=== PATIENT | female | born 1955 | race African-American/Black ===

== ENCOUNTER 2021-03-31 13:37 | Emergency (ER) | payer MEDICARE, OTHER ==
[~2021-03-31] VITALS: Ht 157.5 cm; Wt 72.7 kg
[~2021-03-31 13:37] MED LIST: AMLO-258 PO; ESTR0.5T PO; GABA-1181 PO
[2021-03-31] MEDS ORDERED: CYCLOBENZAPRINE HCL 10 MG TABLET PO ONE (15:00)
[2021-03-31] MEDS ORDERED: HYDROCODONE/ACETAMINOPHEN 5-325 MG TABLET PO ONE (15:00)
[2021-03-31] MEDS ORDERED: IBUPROFEN 600 MG TABLET PO ONE (15:00)
[2021-03-31 17:48] VITALS: BP 144/75
== END 2021-03-31 17:56 | disposition home or self-care (01) ==
LOC: EMS 13:43
DX: M54.16 Radiculopathy, lumbar region (principal)
CPT/HCPCS: 72148; 99284; Z7502; Z7610

== ENCOUNTER → 2021-05-23 | Outpatient (CLI) | payer MEDICARE, OTHER ==
[~2021-05-23] MED LIST changes: +ASPI-1450 PO; +ATOR40TA28 PO; +CITA-144 PO; -ESTR0.5T PO; +IBUP-2071 PO; +LAMO100 PO
[2021-05-23 15:53] LABS: EOSINOPHILS % (AUTO) 4.2 % (1.0-6.0); HEMATOCRIT 23.7 % (36-46); HEMOGLOBIN 7.9 g/dL (12.0-16.0); LYMPHOCYTES # (AUTO) 2.7 K/uL (1.0-4.8); LYMPHOCYTES % (AUTO) 36.8 % (22.0-44.0); MEAN CORPUSCULAR HEMOGLOBIN 32.4 pg (26.0-34.0); MEAN CORPUSCULAR HGB CONC 33.2 G/dL (31.0-37.0); MEAN CORPUSCULAR VOLUME 98 fL (80-100); MONOCYTES # (AUTO) 0.7 K/uL (0.1-1.0); MONOCYTES % (AUTO) 10.2 % (2.0-9.0); NEUTROPHILS # (AUTO) 3.5 K/uL (1.8-7.7); NEUTROPHILS % (AUTO) 47.8 % (40.0-70.0); PLATELET COUNT (AUTO) 370 K/uL (150-450); RED BLOOD CELL COUNT(AUTO) 2.43 MIL/uL (4.00-5.20); RED CELL DISTRIBUTION WIDTH 17.6 % (11.5-14.5)
[2021-05-23 16:26] LABS: ALBUMIN 3.3 g/dL (3.4-5.0); BILIRUBIN,TOTAL 0.3 mg/dL (0.1-1.0); CALCIUM, TOTAL 8.6 mg/dL (8.8-10.5); CREATININE 1.4 mg/dL (0.60-1.30); POTASSIUM 4.2 mmol/L (3.5-5.1); TOTAL PROTEIN, SERUM 7.2 g/dL (6.4-8.2)
== END | disposition home or self-care (01) ==
LOC: LABMN 15:25
PROVIDERS: ATTEND Internal Medicine Cardiovascular Disease
DX: I25.10 Atherosclerotic heart disease of native coronary artery without angina pectoris (principal); Z95.5 Presence of coronary angioplasty implant and graft
CPT/HCPCS: 80053; 82271; 85025

== ENCOUNTER → 2021-07-12 | Outpatient (CLI) | payer MEDICARE, OTHER ==
[~2021-07-12] VITALS: Ht 154.9 cm; Wt 80.1 kg
[~2021-07-12] MED LIST changes: +FURO20 PO; +ISOS30TA11 PO; +METO-558 PO; +NITR0.4T52 SL; +OMEP20 PO
[2021-07-12 09:07] VITALS: BP 134/80
== END | disposition home or self-care (01) ==
LOC: SRCNTR 08:36
PROVIDERS: ATTEND Internal Medicine
DX: J44.9 Chronic obstructive pulmonary disease, unspecified (principal); I82.462 Acute embolism and thrombosis of left calf muscular vein; I25.10 Atherosclerotic heart disease of native coronary artery without angina pectoris; G47.33 Obstructive sleep apnea (adult) (pediatric); F17.200 Nicotine dependence, unspecified, uncomplicated; I82.461 Acute embolism and thrombosis of right calf muscular vein; D64.9 Anemia, unspecified; Z79.82 Long term (current) use of aspirin; Z88.8 Allergy status to other drugs, medicaments and biological substances; Z79.899 Other long term (current) drug therapy
CPT/HCPCS: G0463

== ENCOUNTER → 2021-11-29 | Outpatient (CLI) | payer MEDICARE, OTHER ==
[~2021-11-29] VITALS: Ht 154.9 cm; Wt 67.0 kg
[~2021-11-29] MED LIST changes: -AMLO-258 PO; -CITA-144 PO; -IBUP-2071 PO
[2021-11-29 12:04] VITALS: BP 115/69
== END | disposition home or self-care (01) ==
LOC: SRCNTR 11:26
PROVIDERS: ATTEND Internal Medicine
DX: G47.33 Obstructive sleep apnea (adult) (pediatric) (principal); Z09 Encounter for follow-up examination after completed treatment for conditions other than malignant neoplasm; J44.9 Chronic obstructive pulmonary disease, unspecified; I25.10 Atherosclerotic heart disease of native coronary artery without angina pectoris; I82.401 Acute embolism and thrombosis of unspecified deep veins of right lower extremity; I82.622 Acute embolism and thrombosis of deep veins of left upper extremity; F17.210 Nicotine dependence, cigarettes, uncomplicated; R51.9 Headache, unspecified; R55 Syncope and collapse; Z95.1 Presence of aortocoronary bypass graft
CPT/HCPCS: G0463; Z7500

== ENCOUNTER → 2022-01-03 | Outpatient (CLI) | payer MEDICARE, OTHER ==
[~2022-01-03] VITALS: Ht 154.9 cm; Wt 73.0 kg
[2022-01-03 10:57] VITALS: BP 126/81
== END | disposition home or self-care (01) ==
LOC: SRCNTR 10:24
PROVIDERS: ATTEND Internal Medicine
DX: I25.10 Atherosclerotic heart disease of native coronary artery without angina pectoris (principal); G47.33 Obstructive sleep apnea (adult) (pediatric); J44.9 Chronic obstructive pulmonary disease, unspecified; I82.409 Acute embolism and thrombosis of unspecified deep veins of unspecified lower extremity; I82.629 Acute embolism and thrombosis of deep veins of unspecified upper extremity; D64.9 Anemia, unspecified; Z95.5 Presence of coronary angioplasty implant and graft
CPT/HCPCS: G0463; Z7500

== ENCOUNTER 2023-12-08 13:58 | Emergency (ER) | payer MEDICARE, OTHER ==
[~2023-12-08] VITALS: Ht 162.6 cm; Wt 75.0 kg
[~2023-12-08 13:58] MED LIST changes: +LAMO-24 PO; -LAMO100 PO; +METO-325 PO; -METO-558 PO
[2023-12-08 14:04] VITALS: TEMP 98
[2023-12-08] MEDS ORDERED: ONDA-243 PO (14:11)
[2023-12-08] MEDS ORDERED: BUPR75TA8 PO (14:11)
[2023-12-08] MEDS ORDERED: CHOL200059 PO (14:12)
[2023-12-08] MEDS ORDERED: NITR0.4T50 SL (14:12)
[2023-12-08] MEDS ORDERED: ROSU40TA70 PO (14:12)
[2023-12-08] MEDS ORDERED: MONT-40 PO (14:12)
[2023-12-08] MEDS ORDERED: POLY510P31 PO (14:12)
[2023-12-08] MEDS ORDERED: PANT40TA54 PO (14:12)
[2023-12-08] MEDS ORDERED: METO-408 PO (14:12)
[2023-12-08] MEDS ORDERED: CYCL10TA16 PO (14:12)
[2023-12-08] MEDS ORDERED: LACT10SO75 PO (14:12)
[2023-12-08] MEDS ORDERED: FURO40TA5 PO (14:12)
[2023-12-08] MEDS ORDERED: ESCI20TA37 PO (14:12)
[2023-12-08 15:25] LABS: BASOPHILS % (AUTO) 0.9 % (0.0-2.0); HEMATOCRIT 30.4 % (36-46); HEMOGLOBIN 9.2 g/dL (12.0-16.0); LYMPHOCYTES # (AUTO) 3.4 K/uL (1.0-4.8); LYMPHOCYTES % (AUTO) 47.1 % (22.0-44.0); MEAN CORPUSCULAR HEMOGLOBIN 22.2 pg (26.0-34.0); MEAN CORPUSCULAR HGB CONC 30.4 G/dL (31.0-37.0); MEAN CORPUSCULAR VOLUME 73 fL (80-100); MONOCYTES # (AUTO) 0.3 K/uL (0.1-1.0); MONOCYTES % (AUTO) 4.4 % (2.0-9.0); NEUTROPHILS # (AUTO) 3.3 K/uL (1.8-7.7); NEUTROPHILS % (AUTO) 45.6 % (40.0-70.0); PLATELET COUNT (AUTO) 293 K/uL (150-450); RED BLOOD CELL COUNT(AUTO) 4.16 MIL/uL (4.00-5.20); RED CELL DISTRIBUTION WIDTH 27.1 % (11.5-14.5); WHITE BLOOD COUNT (AUTO) 7.3 K/uL (4.5-11.0)
[2023-12-08 15:34] LABS: CALCIUM, TOTAL 9.5 mg/dL (8.8-10.5); CREATININE 1.63 mg/dL (0.60-1.30); POTASSIUM 3.7 mmol/L (3.5-5.1)
[2023-12-08 15:49] LABS: TROPONIN I-HIGH SENSITIVITY 62 ng/L (<51)
[2023-12-08 15:51] LABS: RBC MORPHOLOGY COMMENT ABNORMAL RBC MORPH
[2023-12-08 16:27] LABS: APPEARANCE,URINE TURBID (CLEAR); BILIRUBIN,URINE NEGATIVE (NEGATIVE); COLOR,URINE ORANGE (YELLOW); GLUCOSE, URINE (UA) NEGATIVE (NEGATIVE); KETONES,URINE NEGATIVE (NEGATIVE); LEUKOCYTE ESTERASE ,URINE LARGE (NEGATIVE); NITRATE,URINE NEGATIVE (NEGATIVE); OCCULT BLOOD,URINE LARGE (NEGATIVE); PH,URINE 6.5 (5.0-8.0); PROTEIN,URINE 300-600,SEE CONFIRM mg/dL (NEGATIVE); SPECIFIC GRAVITIY, URINE 1.029 (1.003-1.030); UROBILINOGEN,URINE <=1.0 mg/dL (<=1.0)
[2023-12-08 16:36] LABS: SULFOSALICYLIC ACID,URINE 3+ (Negative)
[2023-12-08 16:37] LABS: BACTERIA,URINE Few /HPF (None Seen); RBC,URINE >100 /HPF (0-2); SQUAMOUS EPITHELIAL CELL,UR Few /LPF (None Seen)
[2023-12-08 17:21] LABS: TROPONIN I-HIGH SENSITIVITY 59 ng/L (<51)
[2023-12-08] MEDS ORDERED: CEPH-558 PO (17:45)
[2023-12-08] MEDS ORDERED: PHEN-846 PO (17:45)
[2023-12-08 18:00] VITALS: BP 124/77; PULSE 74; RESP 18
== END 2023-12-08 19:14 | disposition home or self-care (01) ==
LOC: EMS 14:02
DX: N39.0 Urinary tract infection, site not specified (principal); F17.210 Nicotine dependence, cigarettes, uncomplicated; F12.90 Cannabis use, unspecified, uncomplicated; J45.909 Unspecified asthma, uncomplicated; I12.9 Hypertensive chronic kidney disease with stage 1 through stage 4 chronic kidney disease, or unspecified chronic kidney disease; N18.9 Chronic kidney disease, unspecified; Z88.1 Allergy status to other antibiotic agents; Z88.2 Allergy status to sulfonamides; Z88.5 Allergy status to narcotic agent
CPT/HCPCS: 51702; 80048; 81001; 81002; 84484; 85025; 87086; 87186; 93005; 99284